=== PATIENT | female | born 1980 | race Caucasian/White ===

== ENCOUNTER 2017-03-17 06:10 | Emergency (ER) | payer OTHER, SELFPAY ==
[2017-03-17] MEDS ORDERED: Ondansetron HCl/PF 4 MG/2 ML Vial ONE (06:49)
[2017-03-17] MEDS ORDERED: Meclizine HCl 25 MG TAB ONE ×2 (06:49→06:54)
[2017-03-17] MEDS ORDERED: Diazepam 10 MG/2 ML SYRINGE ONE (06:51)
[2017-03-17] MEDS ORDERED: Diazepam 5 MG TAB ONE ×2 (08:39→08:44)
== END 2017-03-17 09:58 | disposition home or self-care (01) ==
LOC: ERS 06:10
DX: R42 Dizziness and giddiness (principal); F90.9 Attention-deficit hyperactivity disorder, unspecified type
CPT/HCPCS: 96361; 96374; 96375; J2405; J3360

== ENCOUNTER 2017-10-06 20:51 | Emergency (ER) | payer OTHER, SELFPAY ==
[2017-10-06 21:46] LABS: Bilirubin Small (Negative); Blood, Urine Large (Negative); Clarity CLEAR (Clear); Glucose, Urine (Dipstick) Negative (Negative); Leukocyte Negative (Negative); Nitrite Negative (Negative); Pregnancy Test - Urine (BHCG) Negative (Negative); Pregu Control Background? CLEAR/WHITE (CLR/WHITE); Pregu Control Bar Appear? YES (CONTROL BAR); Protein, Urine (Dipstick) Negative (Neg-Trace); Urobilinogen 0.2 mg/dL (0.2-1.0)
[2017-10-06] MEDS ORDERED: Ibuprofen 800 MG TAB ONE (21:47)
[2017-10-06 21:48] LABS: Bacteria/HPF None Seen HPF (None Seen); Hyaline Casts/LPF 4-6 HYALINE CAST LPF (0-3 Hyaline); Pathc Cast-AUWi Flag 0.72 (0-2.49); RBC/HPF 0-3 HPF (0-3)
[2017-10-06 21:55] LABS: Crystals/HPF 1+ CA OXALATE HPF (Negative)
== END 2017-10-06 22:08 | disposition home or self-care (01) ==
LOC: ERS 20:51
DX: B34.9 Viral infection, unspecified (principal); F17.210 Nicotine dependence, cigarettes, uncomplicated; J45.909 Unspecified asthma, uncomplicated; Z85.528 Personal history of other malignant neoplasm of kidney
CPT/HCPCS: 81003; 81015; 81025; 99284

== ENCOUNTER 2017-10-08 05:54 | Emergency (ER) | payer SELFPAY ==
[2017-10-08 06:50] LABS: Bilirubin Negative (Negative); Blood, Urine Large (Negative); Clarity CLEAR (Clear); Glucose, Urine (Dipstick) Negative (Negative); Leukocyte Negative (Negative); Nitrite Negative (Negative); Protein, Urine (Dipstick) Negative (Neg-Trace); Specific Gravity, Urine 1.008 (1.002-1.036); Urobilinogen 0.2 mg/dL (0.2-1.0)
[2017-10-08 06:54] LABS: Bacteria/HPF None Seen HPF (None Seen); Hyaline Casts/LPF 0-3 HYALINE CAST LPF (0-3 Hyaline); Squamous Epithelial 0-3 HPF (0-3); WBC/HPF 0-3 HPF (0-3)
[2017-10-08 06:59] LABS: Pregnancy Test - Urine (BHCG) POSITIVE (Negative); Pregu Control Background? CLEAR/WHITE (CLR/WHITE); Pregu Control Bar Appear? YES (CONTROL BAR); Specific Gravity 1.008 (1.002-1.036)
[2017-10-08] MEDS ORDERED: Acetaminophen 500 MG TAB ONE (07:37)
[2017-10-08 07:53] LABS: #Eosinphils 0.4 thou/uL (0.0-0.7); #Lymphocytes 2.1 thou/uL (1.20-3.40); #Monocytes 0.3 thou/uL (0.11-0.59); #Neutrophils 4.1 thou/uL (1.40-6.50); %Basophils 0.5 % (0.0-1.0); %Eosinophils 6.4 % (0.0-10.0); %Lymphocytes 30.6 % (21.0-51.0); %Neutrophils 58.5 % (42.0-75.0); Hemoglobin 11.8 g/dL (12.0-16.0); Mean Corpuscular Volume 81.9 fl (81.0-99.0); Platelet Count 305 thou/uL (130-400); RBC Distribution Width 14.2 % (11.5-14.5); Red Blood Cell (RBC) Count 4.37 mill/uL (4.20-5.40); White Blood Cell (WBC) Count 6.9 thou/uL (4.8-10.8)
[2017-10-08 08:15] LABS: ALT (SGPT) 13 U/L (8-55); AST (SGOT) 15 U/L (5-34); Albumin 3.6 g/dL (3.5-5.0); Alkaline Phosphatase 69 U/L (40-150); Anion Gap 10 mmol/L (10-20); BUN (Urea Nitrogen) 7 mg/dL (7.0-18.7); Bilirubin, Total 0.2 mg/dL (0.2-1.2); Calc. Creatinine Clearance 0 mL/min (70-130); Calcium 8.7 mg/dL (7.8-10.44); Carbon Dioxide 25 mmol/L (22-29); Chloride 106 mmol/L (98-107); Estimated GFR-MDRD 88; Glucose 88 mg/dL (70-105); Protein, Total 6.6 g/dL (6.0-8.3); Sodium 137 mmol/L (136-145)
[2017-10-08] MEDS ORDERED: Ketorolac Tromethamine 60 MG/2 ML VIAL ONE (09:26)
[2017-10-08] MEDS ORDERED: Methocarbamol 500 MG TAB PO SCH (09:45)
--- NOTE | 2017-10-08 09:57 | ULT ---
PELVIC SONOGRAM TRANSABDOMINAL AND TRANSVAGINAL IMAGING WITH DUPLEX EVALUATION: History: Pelvic pain. Bleeding. FINDINGS: Urinary bladder is decompressed. Uterus has a heterogeneous echotexture and is 10.3 cm. Endometrium i s not well visualized, presumably because of its thinness. Hypoechoic lesions within the myometrium m easure up to 2.4 cm. Physiologic amount of free fluid. Right ovary is 3.4 cm and left ovary is 2.6. Each has a normal sonographic appearance with good color and spectral doppler flow. IMPRESSION: Mild fibroid involvement of the uterus. POS: [facility]
== END 2017-10-08 10:38 | disposition home or self-care (01) ==
LOC: ERS 05:54
DX: M54.6 Pain in thoracic spine (principal); J45.909 Unspecified asthma, uncomplicated; F17.210 Nicotine dependence, cigarettes, uncomplicated; Z85.528 Personal history of other malignant neoplasm of kidney
CPT/HCPCS: 36415; 76856; 80053; 81003; 81015; 81025; 84702; 85025; 87086; 96372; J1885

== ENCOUNTER 2017-10-08 21:15 | Emergency (ER) | payer SELFPAY | END 2017-10-08 22:06 | disposition left against medical advice (07) | LOC: ERS 21:15 | DX: Z53.21 Procedure and treatment not carried out due to patient leaving prior to being seen by health care provider (principal) ==

== ENCOUNTER 2018-01-22 13:39 | Emergency (ER) | payer SELFPAY ==
--- NOTE | 2018-01-22 14:47 | RAD ---
RIGHT ANKLE THREE VIEWS: History: Right ankle pain. Prior surgery. FINDINGS: Ankle mortise and talar dome are intact. Internal fixation of the lateral malleolus and talar neck wi th lag screws is again demonstrated. No perihardware lucency. Arthritic changes along each side of th e talar and the posterior subtalar facet have not changed significantly. No acute fracture, dislocati on or aggressive osseous destruction. IMPRESSION: Post-operative and degenerative changes are stable. No acute osseous abnormalities are demonstrated. POS: [facility]
== END 2018-01-22 14:38 | disposition home or self-care (01) ==
LOC: SCSER 13:39
DX: M25.571 Pain in right ankle and joints of right foot (principal); F41.9 Anxiety disorder, unspecified; F90.9 Attention-deficit hyperactivity disorder, unspecified type; F17.210 Nicotine dependence, cigarettes, uncomplicated; Z79.899 Other long term (current) drug therapy

== ENCOUNTER 2018-06-30 11:36 | Emergency (ER) | payer SELFPAY ==
[2018-06-30] MEDS ORDERED: Thiamine HCl 200 MG/2 ML VIAL ONE (12:26)
[2018-06-30 12:55] LABS: #Basophils 0.1 thou/uL (0.0-0.2); #Eosinphils 0.6 thou/uL (0.0-0.7); #Lymphocytes 2.1 thou/uL (1.20-3.40); #Monocytes 0.5 thou/uL (0.11-0.59); #Neutrophils 6.5 thou/uL (1.40-6.50); %Basophils 1.1 % (0.0-1.0); %Eosinophils 5.8 % (0.0-10.0); %Lymphocytes 21.8 % (21.0-51.0); %Neutrophils 66.4 % (42.0-75.0); Mean Corpuscular HGB CONC 31.3 g/dL (32.0-36.0); Mean Corpuscular Volume 83.1 fL (78.0-98.0); Mean Platelet Volume 6.1 fL (7.4-10.4); Platelet Count 353 thou/uL (130-400); RBC Distribution Width 14.3 % (11.5-14.5); Red Blood Cell (RBC) Count 4.59 mill/uL (4.20-5.40); White Blood Cell (WBC) Count 9.8 thou/uL (4.8-10.8)
[2018-06-30 13:03] LABS: Bilirubin Negative (Negative); Blood, Urine Trace (Negative); Clarity Slightly Cloudy (Clear); Glucose, Urine (Dipstick) Negative (Negative); Leukocyte Trace (Negative); Nitrite Positive (Negative); Protein, Urine (Dipstick) Negative (Neg-Trace); Specific Gravity, Urine 1.015 (1.005-1.030); Urobilinogen 0.2 mg/dL (0.2-1.0)
[2018-06-30 13:06] LABS: Pregnancy Test - Urine (BHCG) Negative (Negative); Pregu Control Background? CLEAR/WHITE (CLR/WHITE); Pregu Control Bar Appear? YES (CONTROL BAR); Specific Gravity 1.015 (1.002-1.036)
[2018-06-30 13:06] LABS: ALT (SGPT) 13 U/L (8-55); AST (SGOT) 20 U/L (5-34); Albumin 3.4 g/dL (3.5-5.0); Alkaline Phosphatase 72 U/L (40-150); Anion Gap 13 mmol/L (10-20); BUN (Urea Nitrogen) 7 mg/dL (7.0-18.7); Bilirubin, Total 0.1 mg/dL (0.2-1.2); Calc. Creatinine Clearance 0 mL/min (70-130); Calcium 8.3 mg/dL (7.8-10.44); Carbon Dioxide 19 mmol/L (22-29); Chloride 108 mmol/L (98-107); Estimated GFR-MDRD Greater than 90; Globulin 3.2 g/dL (2.4-3.5); Glucose 84 mg/dL (70-105); Potassium 4.8 mmol/L (3.5-5.1); Protein, Total 6.6 g/dL (6.0-8.3); Sodium 135 mmol/L (136-145)
[2018-06-30 13:26] LABS: RBC/HPF 0-3 HPF (0-3); Squamous Epithelial 0-3 HPF (0-3)
[2018-06-30 13:27] LABS: Bacteria/HPF 3+ HPF (None Seen)
== END 2018-06-30 12:45 | disposition home or self-care (01) ==
LOC: SCSER 11:36
DX: N39.0 Urinary tract infection, site not specified (principal); F41.9 Anxiety disorder, unspecified; F90.9 Attention-deficit hyperactivity disorder, unspecified type; F17.210 Nicotine dependence, cigarettes, uncomplicated
CPT/HCPCS: 80053; 81003; 81015; 81025; 84443; 85025; 96365; J3411

== ENCOUNTER 2018-10-09 18:05 | Emergency (ER) | payer BC ==
[2018-10-09] MEDS ORDERED: Metoclopramide HCl 10 MG/2 ML VIAL ONE (18:22)
[2018-10-09] MEDS ORDERED: diphenhydrAMINE 50 MG/ML VIAL ONE (18:22)
[2018-10-09] MEDS ORDERED: Acetaminophen 500 MG TAB ONE (18:26)
[2018-10-09] MEDS ORDERED: Magnesium Sulfate 2 GM/NS 0.9% 50 ML BAG ONE (18:50)
[2018-10-09] MEDS ORDERED: methylPREDNISolone Sod Succ/PF 125 MG/2 ML VIAL ONE ×2 (18:50→18:52)
--- NOTE | 2018-10-09 19:11 | CT ---
CT BRAIN WITHOUT CONTRAST 10/09/18 HISTORY: Headache. FINDINGS: No evidence of acute infarct, hemorrhage, midline shift or abnormal extra-axial fluid collections are seen. The ventricular size is normal and the basilar cisterns patent. The bony calvarium is intact. The visualized paranasal sinuses and mastoid air cells are well aerated. IMPRESSION: No CT evidence of acute intracranial process. POS: [facility]
== END 2018-10-09 20:13 | disposition home or self-care (01) ==
LOC: SCSER 18:05
DX: R51 Headache (principal); F41.9 Anxiety disorder, unspecified; F17.210 Nicotine dependence, cigarettes, uncomplicated
CPT/HCPCS: 70450; 96365; 96368; 96375; J1200; J2765; J2930; J3475

== ENCOUNTER 2019-04-11 03:24 | Emergency (ER) | payer BC, SELFPAY | END 2019-04-11 03:57 | disposition home or self-care (01) | LOC: ERS 03:24 | DX: H60.91 Unspecified otitis externa, right ear (principal); F41.9 Anxiety disorder, unspecified; F17.210 Nicotine dependence, cigarettes, uncomplicated; G43.909 Migraine, unspecified, not intractable, without status migrainosus | CPT/HCPCS: 99282 ==

== ENCOUNTER 2019-04-11 08:12 | Emergency (ER) | payer SELFPAY ==
[2019-04-11] MEDS ORDERED: Ketorolac Tromethamine 30 MG/ML VIAL ONE (09:32)
== END 2019-04-11 09:56 | disposition home or self-care (01) ==
LOC: ERS 08:12
DX: H60.91 Unspecified otitis externa, right ear (principal); G43.909 Migraine, unspecified, not intractable, without status migrainosus; F41.9 Anxiety disorder, unspecified; F90.9 Attention-deficit hyperactivity disorder, unspecified type; F17.210 Nicotine dependence, cigarettes, uncomplicated
CPT/HCPCS: 99282; J1885

== ENCOUNTER 2019-04-11 18:20 | Emergency (ER) | payer SELFPAY | END 2019-04-11 19:34 | disposition left against medical advice (07) | LOC: ERS 18:20 | DX: Z53.21 Procedure and treatment not carried out due to patient leaving prior to being seen by health care provider (principal) ==

== ENCOUNTER 2019-04-13 00:34 | Emergency (ER) | payer SELFPAY ==
[2019-04-13] MEDS ORDERED: Ketorolac Tromethamine 30 MG/ML VIAL ONE (00:52)
== END 2019-04-13 01:17 | disposition home or self-care (01) ==
LOC: SCSER 00:34
DX: H66.91 Otitis media, unspecified, right ear (principal); H60.91 Unspecified otitis externa, right ear; F90.9 Attention-deficit hyperactivity disorder, unspecified type; F41.9 Anxiety disorder, unspecified; F17.210 Nicotine dependence, cigarettes, uncomplicated; Z85.528 Personal history of other malignant neoplasm of kidney
CPT/HCPCS: 96372; 99282; J1885

== ENCOUNTER 2021-02-22 14:19 | Emergency (ER) | payer SELFPAY | END 2021-02-22 15:05 | disposition left against medical advice (07) | LOC: ERS 14:19 | DX: Z53.21 Procedure and treatment not carried out due to patient leaving prior to being seen by health care provider (principal) ==

== ENCOUNTER 2024-01-02 10:06 | Observation (INO) | payer OTHER, SELFPAY ==
[2024-01-02] MEDS ORDERED: Iopamidol-370 76% 500 ML MDV (1 ML CHARGE) ONE (11:00)
[2024-01-02] MEDS ORDERED: Morphine 4 MG/ML VIAL ONE (11:02)
[2024-01-02] MEDS ORDERED: Ondansetron PF 4 MG/2 ML Vial ONE ×2 (11:02→13:28)
[2024-01-02 11:12] LABS: #Basophils 0.04 10x3/uL (0.0-0.2); %Basophils 0.4 % (0.0-1.0); %Eosinophils 3.5 % (0.0-10.0); %Lymphocytes 14.6 % (21.0-51.0); %Monocytes 4.8 % (0.0-10.0); %Neutrophils 76.2 % (42.0-75.0); Hematocrit 31.7 % (36.0-47.0); Hemoglobin 9.8 g/dL (12.0-16.0); Mean Corpuscular HGB CONC 30.9 g/dL (32.0-36.0); Mean Corpuscular Hemoglobin 23.8 pg (27.0-31.0); Mean Corpuscular Volume 76.9 fL (78.0-98.0); Mean Platelet Volume 8.8 fL (7.4-10.4); Platelet Count 335 10x3/uL (130-400); RBC Distribution Width 16.1 % (11.5-14.5); Red Blood Cell (RBC) Count 4.12 mill/uL (4.20-5.40)
[2024-01-02 11:21] LABS: BHCG - Serum Negative (NEGATIVE); Pregs Control Background? CLEAR/WHITE (CLR/WHITE); Pregs Control Bar Appear? YES (CONTROL BAR)
[2024-01-02 11:28] LABS: ALT (SGPT) 14 U/L (8-55); AST (SGOT) 21 U/L (5-34); Albumin 3.6 g/dL (3.5-5.0); Alkaline Phosphatase 65 U/L (40-110); Anion Gap 9 mmol/L (10-20); BUN (Urea Nitrogen) 9 mg/dL (7.0-18.7); Bilirubin, Total 0.5 mg/dL (0.2-1.2); Calc. Creatinine Clearance 0 mL/min (70-130); Calcium 8.5 mg/dL (7.8-10.44); Carbon Dioxide 23 mmol/L (22-29); Chloride 107 mmol/L (98-107); Estimated GFR 94; Globulin 3.3 g/dL (2.4-3.5); Glucose 93 mg/dL (70-105); Lipase 27 U/L (8-78); Potassium 3.6 mmol/L (3.5-5.1); Protein, Total 6.9 g/dL (6.0-8.3); Sodium 135 mmol/L (136-145)
[2024-01-02] MEDS ORDERED: Ondansetron ODT 4 MG TAB PO PRN (12:17)
[2024-01-02] MEDS ORDERED: Ondansetron PF 4 MG/2 ML Vial IVP PRN (12:17)
[2024-01-02] MEDS ORDERED: Morphine 2 MG/ML VIAL SLOW IVP PRN (12:17)
[2024-01-02] MEDS ORDERED: Ipratropium/Albuterol 3 ML NEB NEB PRN (12:17)
[2024-01-02] MEDS ORDERED: Sodium Chloride 0.9% 100 ML ONE (12:21)
[2024-01-02] MEDS ORDERED: Piperacillin/Tazobactam 4.5 GM VIAL ONE (12:21)
[2024-01-02] MEDS ORDERED: Bupivacaine 0.25% HCL 30 ML VIAL ONE (13:02)
[2024-01-02] MEDS ORDERED: EPINEPHrine 1 MG/ML VIAL ONE (13:02)
[2024-01-02] MEDS ORDERED: Promethazine HCl 25 MG/ML VIAL IM PRN (13:23)
[2024-01-02] MEDS ORDERED: Ondansetron HCl/PF 4 MG/2 ML Vial IVP PRN (13:23)
[2024-01-02] MEDS ORDERED: fentaNYL PF 100 MCG/2 ML SYRINGE ONE ×2 (13:27→15:11)
[2024-01-02] MEDS ORDERED: Rocuronium Bromide 10 MG/ML (10ML VIAL) ONE (13:28)
[2024-01-02] MEDS ORDERED: Lidocaine 1% PF 5 ML VIAL ONE (13:28)
[2024-01-02] MEDS ORDERED: SUCCINYLCHOLINE/SOD CL,ISO/PF 200 MG/10 ML SYRINGE FS ONE (13:28)
[2024-01-02] MEDS ORDERED: Midazolam HCl 2 mg/2 ml Vial ONE (13:28)
[2024-01-02] MEDS ORDERED: PROPOFOL 20 ML ONE (13:28)
[2024-01-02] MEDS ORDERED: Dexamethasone 20 MG/5 ML VIAL ONE (13:28)
[2024-01-02] MEDS ORDERED: NEOSTIGMINE 3 MG/3 ML SYRINGE ONE (14:43)
[2024-01-02] MEDS ORDERED: Glycopyrrolate 0.2 MG/ML 5 ML SYRINGE ONE (14:43)
[2024-01-02 16:22] VITALS: BMI 28.2
[2024-01-02] MEDS: Acetaminophen 325 MG TAB PO SCH (17:22)
[2024-01-02] MEDS: Piperacillin/Tazobactam 3.375 GM in Sodium Chloride 0.9% 100 ML IVPB SCH (17:39)
[2024-01-02] MEDS: traMADol HCl 50 MG TAB PO SCH (17:40)
[2024-01-02] MEDS: traMADol HCl 50 MG TAB PO PRN (19:49)
[2024-01-02 20:01] VITALS: BP 109/67
[2024-01-03 00:46] VITALS: TEMP 98.2
[2024-01-03 06:07] LABS: #Basophils 0.03 10x3/uL (0.0-0.2); #Eosinphils Less than 0.03 10x3/uL (0.0-0.7); %Basophils 0.3 % (0.0-1.0); %Lymphocytes 8.8 % (21.0-51.0); %Monocytes 4.6 % (0.0-10.0); %Neutrophils 85.9 % (42.0-75.0); Hematocrit 29.9 % (36.0-47.0); Mean Corpuscular HGB CONC 30.1 g/dL (32.0-36.0); Mean Corpuscular Hemoglobin 23.1 pg (27.0-31.0); Mean Corpuscular Volume 76.9 fL (78.0-98.0); Mean Platelet Volume 9.4 fL (7.4-10.4); Platelet Count 340 10x3/uL (130-400); RBC Distribution Width 15.9 % (11.5-14.5); Red Blood Cell (RBC) Count 3.89 mill/uL (4.20-5.40)
[2024-01-03 06:22] LABS: Anion Gap 9 mmol/L (10-20); BUN (Urea Nitrogen) 5 mg/dL (7.0-18.7); Calc. Creatinine Clearance 130 mL/min (70-130); Calcium 8.7 mg/dL (7.8-10.44); Carbon Dioxide 22 mmol/L (22-29); Chloride 105 mmol/L (98-107); Estimated GFR 110; Glucose 109 mg/dL (70-105); Potassium 3.9 mmol/L (3.5-5.1); Sodium 132 mmol/L (136-145)
== END 2024-01-03 14:54 | disposition home or self-care (01) ==
LOC: ERS 10:06 → SJJU 16:03
PROVIDERS: ADMIT Surgery; ATTEND Surgery
PROC: 0DTJ4ZZ Resection of Appendix, Percutaneous Endoscopic Approach (ICD-10-PCS; principal; 2024-01-02)
DX: K35.80 Unspecified acute appendicitis (principal); Z90.89 Acquired absence of other organs; Z98.890 Other specified postprocedural states
CPT/HCPCS: 36415; 74177; 80048; 80053; 83605; 83690; 84703; 85025; 87040; 88304; 96374; 96375; A4649; G0378; J0171; J0665; J1100; J2250; J2270; J2405; J2543; J2704; J3490; Q9967

== ENCOUNTER 2025-01-21 00:16 | Emergency (ER) | payer OTHER ==
[2025-01-21] MEDS ORDERED: Ibuprofen 200 MG TAB ONE ×2 (00:53→00:58)
[2025-01-21] MEDS ORDERED: Acetaminophen 500 MG TAB ONE (00:53)
[2025-01-21] MEDS ORDERED: Boostrix 0.5 ML (Tdap) VIAL (>/=7 yrs of age) ONE (00:54)
== END 2025-01-21 04:45 | disposition home or self-care (01) ==
LOC: ERS 00:16
DX: S82.142A Displaced bicondylar fracture of left tibia, initial encounter for closed fracture (principal); F17.210 Nicotine dependence, cigarettes, uncomplicated; F90.9 Attention-deficit hyperactivity disorder, unspecified type; W05.2XXA Fall from non-moving motorized mobility scooter, initial encounter; Z55.6 Problems related to health literacy
CPT/HCPCS: 90715

== ENCOUNTER 2025-02-21 21:49 | Emergency (ER) | payer OTHER | END 2025-02-21 23:28 | disposition home or self-care (01) | LOC: ERS 21:49 | DX: S01.412A Laceration without foreign body of left cheek and temporomandibular area, initial encounter (principal); F17.210 Nicotine dependence, cigarettes, uncomplicated; W01.198A Fall on same level from slipping, tripping and stumbling with subsequent striking against other object, initial encounter; Y93.89 Activity, other specified; Y92.091 Bathroom in other non-institutional residence as the place of occurrence of the external cause | CPT/HCPCS: 12011; 70486 ==

== ENCOUNTER 2025-05-03 12:12 | Emergency (ER) | payer OTHER ==
[2025-05-03] MEDS ORDERED: HYDROcodone/Acetaminophen 10/325 mg Tablet ONE (12:29)
[2025-05-03] MEDS ORDERED: Lidocaine/Transparent Dressing 1 EACH KIT ONE (12:35)
[2025-05-03] MEDS ORDERED: Lidocaine 1% w/Epinephrine 1:100K 20 ML VIAL ONE (12:52)
== END 2025-05-03 13:30 | disposition home or self-care (01) ==
LOC: ERS 12:12
DX: S91.312A Laceration without foreign body, left foot, initial encounter (principal); F17.210 Nicotine dependence, cigarettes, uncomplicated; W26.8XXA Contact with other sharp object(s), not elsewhere classified, initial encounter; Y93.01 Activity, walking, marching and hiking
CPT/HCPCS: 12002; 96374; J2060